=== PATIENT | male | born 1970 | race Caucasian/White ===

== ENCOUNTER 2017-09-28 23:48 | Emergency (ER) | payer OTHER ==
[~2017-09-28] VITALS: Ht 172.7 cm; Wt 105.2 kg
[~2017-09-28 23:48] MED LIST: ALBU90OI61 INH; AMIT10 PO; AMPDEX15CR PO; CLON.1 PO; CYCL10 PO; Coumadin5 MG PO; DIVA500ER PO; DOXE10 PO; DULO30 PO; ENOX120I SC; FLUSAL1005; FLUSAL2505 INH; GABA100 PO; GABA800 PO; Keflex500 MG PO; LEVE500 PO; LEVO750 PO; LISI5 PO; LOSA25 PO; METH40 PO; METPRE4DP PO; Norco 5-325 Ta1 EACH PO; PRAZ2 PO; Pepcid20 MG PO; Prednisone10 MG PO; SUBOXONE 2 MG-1 EACH SL; SULI150 PO; Ultram50 MG PO; Ventolin/Prove6.7 GM INH; WARF5 PO
[2017-09-29] MEDS ORDERED: WARF6 PO (00:24)
[2017-09-29] MEDS ORDERED: WARF3 PO (00:24)
[2017-09-29 01:36] LABS: International Normalized Ratio 3.21; Prothrombin Time Results 34.6 Sec (9.7-11.5)
[2017-09-29] MEDS ORDERED: Norco 5-325 Ta1 EACH PO (02:16)
== END 2017-09-29 02:25 | disposition home or self-care (01) ==
LOC: ER 23:48
PROVIDERS: Emergency Medicine
DX: I82.811 Embolism and thrombosis of superficial veins of right lower extremity (principal); J44.9 Chronic obstructive pulmonary disease, unspecified; D68.59 Other primary thrombophilia; Z79.899 Other long term (current) drug therapy; Z79.01 Long term (current) use of anticoagulants; Z86.718 Personal history of other venous thrombosis and embolism
CPT/HCPCS: 85610; 93971; 99284

== ENCOUNTER → 2018-09-12 | Outpatient (CLI) | payer OTHER ==
[~2018-09-12] MED LIST changes: +WARF3 PO; +WARF6 PO
== END | disposition home or self-care (01) ==
LOC: LAB EV 17:37 → LAB SHORT 17:37
DX: L03.114 Cellulitis of left upper limb (principal)
CPT/HCPCS: 87070; 87075; 87077; 87147; 87186; 87205

== ENCOUNTER 2018-09-14 13:34 | Emergency (ER) | payer OTHER ==
[~2018-09-14] VITALS: Ht 172.7 cm; Wt 79.4 kg
[2018-09-14 14:07] LABS: BASOPHILS ABSOLUTE AUTO 0.06 K/mm3 (0.00-0.23); BASOPHILS PERCENT AUTO 1 % (0-2); EOSINOPHILS ABSOLUTE AUTO 0.41 K/mm3 (0.00-0.68); EOSINOPHILS PERCENT AUTO 4 % (0-6); Hemoglobin 14.3 g/dL (13.5-17.5); IMMATURE GRAN ABSOLUTE AUTO 0.06 K/mm3 (0.00-0.10); IMMATURE GRAN PERCENT AUTO 1 % (0-1); LYMPHOCYTES ABSOLUTE AUTO 2.19 K/mm3 (0.84-5.20); LYMPHOCYTES PERCENT AUTO 18 % (21-46); MONOCYTES ABSOLUTE AUTO 0.78 K/mm3 (0.16-1.47); MONOCYTES PERCENT AUTO 7 % (4-13); Mean Corpuscular HGB 30.2 pg (26.0-34.0); Mean Corpuscular HGB Conc 32.5 g/dL (31.5-36.5); Mean Corpuscular Volume 93 fL (80-100); Mean Platelet Volume 10.1 fL (9.1-12.4); NEUTROPHILS ABSOLUTE AUTO 8.37 K/mm3 (1.96-9.15); NEUTROPHILS PERCENT AUTO 71 % (41-73); Platelet Count 343 K/mm3 (150-400); RDW Coefficient Variation 12.7 % (11.7-14.2); RDW Standard Deviation 43.6 fL (35.1-46.3); Red Blood Cell Count 4.74 M/mm3 (4.30-5.90); White Blood Cell Count 11.87 K/mm3 (4.00-11.30)
[2018-09-14 14:22] LABS: Alanine Aminotransfer (ALT/SGP 23 U/L (12-78); Albumin, Blood 3.5 g/dL (3.4-5.0); Albumin/Globulin Ratio 0.8 (0.8-1.8); Alk Phos 41 U/L (50-136); Anion Gap 6 mmol/L (6-16); Aspartate Aminotrans (AST/SGOT 25 U/L (12-37); Bilirubin, Total 0.2 mg/dL (0.1-1.0); Blood Urea Nitrogen 17 mg/dL (8-24); Bun/Creatinine Ratio 18.8 (12.0-20.0); CO2, Blood 24 mmol/L (21-32); Calcium, Blood 8.8 mg/dL (8.5-10.1); Chloride, Blood 107 mmol/L (98-108); Creatinine, Blood 0.91 mg/dL (0.60-1.20); Globulin, Blood 4.5 g/dL (2.2-4.0); Glomerular Filtration Rate >60 (60-); Glucose, Blood 97 mg/dL (70-99); Potassium, Blood 4.3 mmol/L (3.5-5.5); Sodium, Blood 137 mmol/L (136-145)
== END 2018-09-14 17:40 | disposition home or self-care (01) ==
LOC: ER 13:34
PROVIDERS: Physician Assistant
DX: Z48.817 Encounter for surgical aftercare following surgery on the skin and subcutaneous tissue (principal); J44.9 Chronic obstructive pulmonary disease, unspecified; G89.29 Other chronic pain; M54.9 Dorsalgia, unspecified; Z79.01 Long term (current) use of anticoagulants; Z79.899 Other long term (current) drug therapy; Z86.718 Personal history of other venous thrombosis and embolism
CPT/HCPCS: 36415; 76882; 80053; 85025; 99284-25

== ENCOUNTER 2019-08-29 06:02 | Inpatient (IN) | payer OTHER ==
[~2019-08-29] VITALS: Ht 172.7 cm; Wt 83.1 kg
[~2019-08-29 06:02] MED LIST changes: -DIVA500ER PO; -GABA800 PO; -WARF3 PO; -WARF6 PO
[2019-08-29 06:43] LABS: BASOPHILS ABSOLUTE AUTO 0.02 K/mm3 (0.00-0.23); BASOPHILS PERCENT AUTO 0 % (0-2); EOSINOPHILS ABSOLUTE AUTO 0.35 K/mm3 (0.00-0.68); EOSINOPHILS PERCENT AUTO 4 % (0-6); Hematocrit 30.7 % (37.0-53.0); Hemoglobin 10.1 g/dL (13.5-17.5); IMMATURE GRAN ABSOLUTE AUTO 0.06 K/mm3 (0.00-0.10); IMMATURE GRAN PERCENT AUTO 1 % (0-1); LYMPHOCYTES ABSOLUTE AUTO 1.59 K/mm3 (0.84-5.20); LYMPHOCYTES PERCENT AUTO 19 % (21-46); MONOCYTES ABSOLUTE AUTO 0.39 K/mm3 (0.16-1.47); MONOCYTES PERCENT AUTO 5 % (4-13); Mean Corpuscular HGB 29.4 pg (26.0-34.0); Mean Corpuscular HGB Conc 32.9 g/dL (31.5-36.5); Mean Corpuscular Volume 90 fL (80-100); Mean Platelet Volume 9.5 fL (9.1-12.4); NEUTROPHILS ABSOLUTE AUTO 6.19 K/mm3 (1.96-9.15); NEUTROPHILS PERCENT AUTO 72 % (41-73); Platelet Count 392 K/mm3 (150-400); RDW Coefficient Variation 14.9 % (11.7-14.2); RDW Standard Deviation 48.9 fL (35.1-46.3); Red Blood Cell Count 3.43 M/mm3 (4.30-5.90)
[2019-08-29 06:54] LABS: Alanine Aminotransfer (ALT/SGP 18 U/L (12-78); Albumin, Blood 2.6 g/dL (3.4-5.0); Albumin/Globulin Ratio 0.5 (0.8-1.8); Alk Phos 41 U/L (50-136); Anion Gap 5 mmol/L (6-16); Aspartate Aminotrans (AST/SGOT 25 U/L (12-37); Bilirubin, Total 0.5 mg/dL (0.1-1.0); Blood Urea Nitrogen 22 mg/dL (8-24); Bun/Creatinine Ratio 27.6 (12.0-20.0); CO2, Blood 26 mmol/L (21-32); Calcium, Blood 8.2 mg/dL (8.5-10.1); Chloride, Blood 105 mmol/L (98-108); Globulin, Blood 4.8 g/dL (2.2-4.0); Glomerular Filtration Rate >60 (60-); Glucose, Blood 120 mg/dL (70-99); Potassium, Blood 3.7 mmol/L (3.5-5.5); Sodium, Blood 136 mmol/L (136-145); Total Protein, Blood 7.4 g/dL (6.4-8.2)
[2019-08-29 07:10] LABS: Prothrombin Time Results 54.7 Sec (9.7-11.5)
[2019-08-29 07:20] LABS: International Normalized Ratio 5.64
[2019-08-29] MEDS ORDERED: DULO60 PO (13:16)
[2019-08-29] MEDS ORDERED: GABA800 PO (13:17)
[2019-08-29] MEDS ORDERED: FLUT1DIS5 INH (13:18)
[2019-08-29] MEDS ORDERED: DIVA500ER PO (13:19)
[2019-08-29] MEDS ORDERED: WARF7.5 PO (13:20)
[2019-08-29] MEDS ORDERED: POTA10T PO (13:21)
[2019-08-29] MEDS ORDERED: TROKENDI XR200 MG PO (13:21)
[2019-08-29] MEDS ORDERED: FURO20 PO (13:22)
[2019-08-29] MEDS ORDERED: Flexeril5 MG PO (13:22)
[2019-08-29] MEDS ORDERED: OXYC5 PO (13:23)
[2019-08-29] MEDS ORDERED: Flonase 0.05% N16 GM (13:24)
--- NOTE | 2019-08-29 17:28 | NUR ---
PT ARRIVED 1700 VIA CART AND WAS ABLE TO AMBULATE WITH STANDBY ASSIST TO RESTROOM. LEGS ARE VERY RED AND TENDER AT THIS TIME, WITH THE R LE HAVING MORE EDEMA. LEGS ARE HOT TO TOUCH. PT HAS BEEN SHOWN CALL LIGHT AND IS SITTING WATCHING TV AT THIS TIME WILL CONTINUE TO MONITOR.
--- NOTE | 2019-08-29 18:32 | NUR ---
THIS TRUST MANAGER TRIED TO CALL IN CONSULT TO ACCOUNT DIRECTOR, BUT THEIR ANSWERING MACHINE WAS FULL. NURSE NOTIFIY HAS BEEN ADDED FOR DAY SHIFT NURSE TO CALL IN THE MORNING.
--- NOTE | 2019-08-29 21:00 | NUR ---
PT BEGAN SHIFT VERY DROWSY, SOMNOLENT AND ONLY WAKEFUL FOR BRIEF FEW WORD RESPONSES THEN WOULD FALL BACK TO SLEEP. SINCE SHOWING S/S SEPSIS IN ER VITALS HAD IMPROVED BUT NOW TEMP HAD COME BACK UP TO 101.6 (ORAL), HR WAS TRENDING BACK UPWARD TO 100'S BPM, BP WAS TRENDING DOWN AGAIN NOW 100'S/50'S AND PT WAS TACHYPNEIC W/RR 20'S AND SPO2 WNL. ALERTED TO CHANGES AND TYLENOL RX'D FOR FEVER W/1L NS ORDERED AT 100 ML/HR. TYLENOL RECIEVED AND IV FLUIDS STARTED AT 2049. ALL OTHER HS MEDS WERE RECIEVED BECAUSE PT PERKED UP AND BECAME MORE ALERT DURING ASSESSMENT. HE ANSWERED Q'S APPROPRIATELY, REQUESTED FOOD/DRINKS AND WAS ABLE TO REPOSITION HIMSELF IN BED FOR PHOTO DOCUMETATION. PICS TAKEN OF LLE SWELLING/REDNESS R/T DVT AND RLE CELLULITIS W/SCABBED ULCERS. DIFFUSE RASH OBSERVED AND MARKED TO L.LEG AND EXTENDS UP FROM CALF TO MID LEG AND INTO INTERIOR OF THIGH. HE C/O SIGNIFICANT WORSENING IN FULL BODY PAIN OVER LAST 5 DAYS AND DESCRIBES PAIN "STABBING/ SH[place] AND ON EVERY SURFACE AND WITHIN EVERY JOINT OF HIS BODY". BLANKETS WERE REMOVED D/T FEVER AND TEMP MODIFIED IN ROOM. PLAN TO MONITOR PT CLOSELY AND REEVALUATE VITALS SIGNS APPROPRIATE.
--- NOTE | 2019-08-29 21:32 | NUR ---
SINCE RECIEVING TYLENOL TEMP IS TRENDING DOWNWARD, NOW 100.8 BUT BP IS NOW 98/60 DESPITE COMMENCING IVF. VEWS SCORE IS IMPROVING AND WANG HELM, SALES SUPPORT REP, IS AWARE OF SITUATION. WCTM CLOSELY FOR S/S WORSENIGN OR SEPSIS. PLAN TO REEVALUATE VITALS BUT PT'S MENTATION IS UNCHANGED AND REMAINS A/OX4.
--- NOTE | 2019-08-29 23:10 | NUR ---
VITALS CONTINUE TO IMPROVE AFTER TYLENOL AND COMMENCING IVF: BP 111/71, TEMP 98.8, HR 91, RR 22 AND SPO2 96%. VEWS SCORE NOW 2. PT CONT'S TO REPORT PAIN BUT IS A/OX4, SPECIFIES NEEDS, IS EATING SNACKS AND DOESN'T APPEAR IN ANY ACUTE DISTRESS. WCTM CLOSELY.
--- NOTE | 2019-08-30 02:14 | NUR ---
MESSAGE LEFT FOR INFECTION CONTROL RE:ISOLATION CLARIFICATION. PT GREW MSSA AND GAS DURING RECENT [facility] HOSPITALISATION PER THEIR INFECTION CONTROL. [facility] PROTOCOL RECOMMENDS CONTACT/DROPLET ISO D/T WEAPING BLE AND LEG ULCERS TO RLE HOWEVER I AM UNSURE IF SPECIMENS WERE OBTAINED FROM LEG SORES AT THAT TIME. ISTRUCTIONS PENDING BUT ISOLATION HAS BEEN IN PLACE SINCE ADMIT.
--- NOTE | 2019-08-30 04:52 | NUR ---
SUMMARY: PT A/OX4, SPECIFIES NEEDS AND IS COOPERATIVE W/CARE. HE USES URINAL INDEPENDENTLY BUT HAS OCCASIONAL ACCIDENTS REQUIRING LINEN CHANGES. WHILE PT'S MENTATION IS VASTLY IMPROVED, HE WAS FORGETFUL/CONFUSED WHEN FEBRILE AT START OF SHIFT SO BED ALARM REMAINS ON FOR POSSIBLE IMPULSIVITY. HE WAS INITIALLY HYPOTENSIVE, TACHYCARDIC, TACHYPNEIC AND FEBRILE BUT AFTER NEW ORDERS TO INFUSE 1L NS AT 100 MLS/HR AND GIVE TYLENOL PRN, PT'S MENTATION AND VITALS ARE AGAIN WNL. BLE EDEMA OBSERVED, RLE>LLE. BOTH ARE RED, SWOLLEN, HOT AND DRY. RLE HAS CELLULITIS W/WEAPING AND SCABBED ULCERS. LLE HAS CHRONIC DVT W/DIFFUSE PURPURA AND PETECHIAE EXTENDING FROM LLE UP TO INNER THIGH. PHOTOS TAKEN AND AREA MARKED. COUMADIN ON HOLD D/T INR ELEVATION. ER MD REFERRED TO SX CX THOUGH NO ORDER IS PRESENT, WILL F/U W/HOSPITALIST. NANCY RN ATTEMPTED TO CALL DERM CX, SEE NOTE FOR DETAILS. PAIN HAS IMPROVED GREATLY T/O NOCTE. HE BEGAN HYPERSENSITIVE REPORTING JOINT AND SKIN PAIN TO ENTIRE BODY BUT OXYCODONE PRN RECIEVED AND PT STATES PAIN IS AGAIN TYPICAL TO LEGS/FEET, BACK AND SHOULDERS ONLY. NO ACUTE CHANGES, VSS/AFEBRILE. HE REMAINS NSR AT 90'S PER TELEMETRY. WCTM AND REPORT TO NANCY RN. DERMATOLOGY CX UNABLE TO BE CALLED
[2019-08-30 04:54] LABS: BASOPHILS ABSOLUTE AUTO 0.02 K/mm3 (0.00-0.23); BASOPHILS PERCENT AUTO 0 % (0-2); EOSINOPHILS ABSOLUTE AUTO 0.49 K/mm3 (0.00-0.68); EOSINOPHILS PERCENT AUTO 6 % (0-6); Hematocrit 28.5 % (37.0-53.0); IMMATURE GRAN ABSOLUTE AUTO 0.16 K/mm3 (0.00-0.10); IMMATURE GRAN PERCENT AUTO 2 % (0-1); LYMPHOCYTES ABSOLUTE AUTO 1.74 K/mm3 (0.84-5.20); LYMPHOCYTES PERCENT AUTO 22 % (21-46); MONOCYTES ABSOLUTE AUTO 0.41 K/mm3 (0.16-1.47); MONOCYTES PERCENT AUTO 5 % (4-13); Mean Corpuscular HGB 28.8 pg (26.0-34.0); Mean Corpuscular HGB Conc 31.6 g/dL (31.5-36.5); Mean Corpuscular Volume 91 fL (80-100); Mean Platelet Volume 9.6 fL (9.1-12.4); NEUTROPHILS ABSOLUTE AUTO 5.13 K/mm3 (1.96-9.15); NEUTROPHILS PERCENT AUTO 64 % (41-73); Platelet Count 327 K/mm3 (150-400); RDW Coefficient Variation 15.1 % (11.7-14.2); RDW Standard Deviation 50.4 fL (35.1-46.3); Red Blood Cell Count 3.12 M/mm3 (4.30-5.90); White Blood Cell Count 7.95 K/mm3 (4.00-11.30)
[2019-08-30 05:10] LABS: Alanine Aminotransfer (ALT/SGP 17 U/L (12-78); Albumin, Blood 2.2 g/dL (3.4-5.0); Albumin/Globulin Ratio 0.5 (0.8-1.8); Alk Phos 33 U/L (50-136); Anion Gap 3 mmol/L (6-16); Aspartate Aminotrans (AST/SGOT 22 U/L (12-37); Bilirubin, Total 0.5 mg/dL (0.1-1.0); Blood Urea Nitrogen 13 mg/dL (8-24); Bun/Creatinine Ratio 14.5 (12.0-20.0); CO2, Blood 27 mmol/L (21-32); Calcium, Blood 7.9 mg/dL (8.5-10.1); Chloride, Blood 104 mmol/L (98-108); Creatinine, Blood 0.89 mg/dL (0.60-1.20); Globulin, Blood 4.4 g/dL (2.2-4.0); Glomerular Filtration Rate >60 (60-); Glucose, Blood 95 mg/dL (70-99); Sodium, Blood 134 mmol/L (136-145); Total Protein, Blood 6.6 g/dL (6.4-8.2)
[2019-08-30 05:35] LABS: Prothrombin Time Results 65.7 Sec (9.7-11.5)
--- NOTE | 2019-08-30 06:21 | NUR ---
CALLED ALERTED THE ER NOTE INDICATES SURGICAL CX WOULD OCCUR BUT NO ORDER PRESENT. ORDER RECIEVED AND CX CALLED TO AN[facility] SERVICE ON 08/30/19 AT 0620.
[2019-08-30 06:22] LABS: International Normalized Ratio 6.85
--- NOTE | 2019-08-30 06:29 | NUR ---
CRITICAL INR NOW 6.85 (WAS 5.64). ALERTED AND NEW ORDER RECIEVED TO CONTINUE HOLDING COUMADIN AND RECHECK PRO TIME IN AM.
[2019-08-30 14:21] LABS: U Amphetamine Screen Not Detected; U Barbituate Screen Not Detected; U Benzodiazapine Screen Not Detected; U Buprenorphine Screen Not Detected; U Cannabinoids Screen Not Detected; U Cocaine Screen Not Detected; U Methadone Screen Not Detected; U Methamphetamine Screen Not Detected; U Opiates Screen DETECTED; U Oxycodone Screen DETECTED; U Phencyclidine Screen Not Detected; U Propoxyphene Screen Not Detected
--- NOTE | 2019-08-30 17:18 | NUR ---
SUMMARY PT RESTING QUIETLY IN BED, WAKES EASILY, SPOUSE AT THE BEDSIDE, PT UP TO THE SHOWER TODAY WITH MIN ASSIST, PT USES THE WALKER, PT MED PER EMAR FOR PAIN, NO ACUTE CHANGES, WILL CONT TO MONITOR
[2019-08-31 05:01] LABS: BASOPHILS ABSOLUTE AUTO 0.03 K/mm3 (0.00-0.23); BASOPHILS PERCENT AUTO 0 % (0-2); EOSINOPHILS ABSOLUTE AUTO 0.77 K/mm3 (0.00-0.68); EOSINOPHILS PERCENT AUTO 8 % (0-6); Hematocrit 27.7 % (37.0-53.0); Hemoglobin 8.6 g/dL (13.5-17.5); IMMATURE GRAN ABSOLUTE AUTO 0.21 K/mm3 (0.00-0.10); IMMATURE GRAN PERCENT AUTO 2 % (0-1); LYMPHOCYTES ABSOLUTE AUTO 1.89 K/mm3 (0.84-5.20); LYMPHOCYTES PERCENT AUTO 20 % (21-46); MONOCYTES ABSOLUTE AUTO 0.62 K/mm3 (0.16-1.47); MONOCYTES PERCENT AUTO 7 % (4-13); Mean Corpuscular HGB 28.4 pg (26.0-34.0); Mean Corpuscular Volume 91 fL (80-100); Mean Platelet Volume 9.7 fL (9.1-12.4); NEUTROPHILS ABSOLUTE AUTO 5.85 K/mm3 (1.96-9.15); NEUTROPHILS PERCENT AUTO 63 % (41-73); Platelet Count 333 K/mm3 (150-400); RDW Standard Deviation 50.4 fL (35.1-46.3); Red Blood Cell Count 3.03 M/mm3 (4.30-5.90); White Blood Cell Count 9.37 K/mm3 (4.00-11.30)
--- NOTE | 2019-08-31 05:21 | NUR ---
SHIFT SUMMARY PT SLEPT OFF AND ON THROUGHOUT THE NIGHT. DROWSY AFTER PAIN MEDICATION. PT REPORTED PAIN TO BACK AND BLE'S, RIGHT LEG BEING THE MOST PAINFUL. BLE'S WITH REDNESS AND SWELLING. ULCERS TO RLE OPEN TO AIR. PICTURES IN CHART. NO IMPROVEMENT NOTICED TO REDNESS OR SWELLING TO BLE'S THIS EVENING BUT DOES NOT APPEAR TO BE ANY WORSE EITHER. OUTLINE OF REDNESS MARKED. TELEMETRY ON, READING SR IN THE 90'S. SIGNIFICANT OTHER REMAINED AT BEDSIDE THROUGHOUT THE NIGHT. RECLINER CHAIR PROVIDED. NO ACUTE CHANGES THIS SHIFT. VITAL SIGNS STABLE. WILL CONTINUE TO MONITOR.
[2019-08-31 05:34] LABS: Anion Gap 5 mmol/L (6-16); Blood Urea Nitrogen 14 mg/dL (8-24); Bun/Creatinine Ratio 16.1 (12.0-20.0); CO2, Blood 27 mmol/L (21-32); Calcium, Blood 8.4 mg/dL (8.5-10.1); Chloride, Blood 102 mmol/L (98-108); Creatinine, Blood 0.87 mg/dL (0.60-1.20); Glomerular Filtration Rate >60 (60-); Glucose, Blood 104 mg/dL (70-99); Sodium, Blood 134 mmol/L (136-145)
--- NOTE | 2019-08-31 17:21 | NUR ---
SUMMARY PT RESTING QUIETLY IN BED, WAKES WHEN SPOKEN LOUDLY TO, PT MED PER EMAR FOR PAIN, PT INDEPENDENT IN THE ROOM, WILL OCC USE THE WALKER, PT USES THE URINAL AT THE BEDSIDE, IS OCC INCONTINENT WHEN DEEPLY ASLEEP, COOPERATIVE WITH CARE, WILL CONT TO MONITOR
[2019-09-01 05:10] LABS: BASOPHILS ABSOLUTE AUTO 0.04 K/mm3 (0.00-0.23); BASOPHILS PERCENT AUTO 0 % (0-2); EOSINOPHILS ABSOLUTE AUTO 0.97 K/mm3 (0.00-0.68); EOSINOPHILS PERCENT AUTO 9 % (0-6); Hematocrit 29.1 % (37.0-53.0); Hemoglobin 9.2 g/dL (13.5-17.5); IMMATURE GRAN ABSOLUTE AUTO 0.41 K/mm3 (0.00-0.10); IMMATURE GRAN PERCENT AUTO 4 % (0-1); LYMPHOCYTES ABSOLUTE AUTO 1.63 K/mm3 (0.84-5.20); LYMPHOCYTES PERCENT AUTO 16 % (21-46); MONOCYTES ABSOLUTE AUTO 0.59 K/mm3 (0.16-1.47); MONOCYTES PERCENT AUTO 6 % (4-13); Mean Corpuscular HGB 29.1 pg (26.0-34.0); Mean Corpuscular HGB Conc 31.6 g/dL (31.5-36.5); Mean Corpuscular Volume 92 fL (80-100); Mean Platelet Volume 9.7 fL (9.1-12.4); NEUTROPHILS ABSOLUTE AUTO 6.89 K/mm3 (1.96-9.15); NEUTROPHILS PERCENT AUTO 65 % (41-73); Platelet Count 382 K/mm3 (150-400); RDW Coefficient Variation 15.3 % (11.7-14.2); RDW Standard Deviation 51.8 fL (35.1-46.3); Red Blood Cell Count 3.16 M/mm3 (4.30-5.90); White Blood Cell Count 10.53 K/mm3 (4.00-11.30)
[2019-09-01 05:17] LABS: International Normalized Ratio 3.58; Prothrombin Time Results 35.6 Sec (9.7-11.5)
[2019-09-01 05:22] LABS: Anion Gap 8 mmol/L (6-16); Blood Urea Nitrogen 12 mg/dL (8-24); Bun/Creatinine Ratio 15.6 (12.0-20.0); CO2, Blood 23 mmol/L (21-32); Calcium, Blood 8.4 mg/dL (8.5-10.1); Chloride, Blood 105 mmol/L (98-108); Creatinine, Blood 0.77 mg/dL (0.60-1.20); Glomerular Filtration Rate >60 (60-); Glucose, Blood 114 mg/dL (70-99); Potassium, Blood 4.2 mmol/L (3.5-5.5); Sodium, Blood 136 mmol/L (136-145)
--- NOTE | 2019-09-01 06:08 | NUR ---
SHIFT SUMMARY PT VERY SLEEPY THIS EVENING. WAKES WHEN CALLING HIS NAME BUT OVERALL LETHARGIC THROUGHOUT THE NIGHT. PT DID REPORT PAIN IN BLE'S, MORE SEVERE IN RLE BUT WOULD GO RIGHT BACK TO SLEEP. DID NOT GIVE ANY NARCOTIC PAIN MEDICATION THIS EVENING DUE TO LETHARGY. BLE'S DID APPEAR SLIGHTLY IMPROVED THIS EVENING. RLE STILL VERY SWOLLEN BUT REDNESS TO BOTH LE'S IMPROVED. PT AMBULATING TO THE RESTROOM WITH A SBA, HOWEVER IS INCONTINENT AT TIMES. MOSTLY USES THE URINAL WHILE IN BED. TELEMETRY SINUS RHYTHM IN THE 90'S. PT AFEBRILE THIS EVENING. PT SLEEPING AT THIS TIME. WILL CONTINUE TO MONITOR.
--- NOTE | 2019-09-01 17:19 | NUR ---
SHIFT SUMMARY PT MEDICATED FOR PAIN ONCE THIS SHIFT. PT VERY SLEEPY AFTERWARDS BUT EASY TO AROUSE. PT REFUSED TO GET OUT OF BED THIS SHIFT. CONT/INCONT THROUGHOUT SHIFT. PT STATES HE IS "MISSING THE URINAL". NO BM THIS SHIFT. AT BEDSIDE. PT HAS NEW IV PLACED TO LFA. FLUSHING WELL. PT ENCOURAGED TO DRINK MORE WATER. TEMP OF 100.0. BLANKET REMOVED TO COOL PATIENT. TYLENOL GIVEN. RA TO BUTTOCKS, FOAM PLACED FOR PREVENTION. NO OTHER ACUTE CHANGES IN ASSESSMENT AT THIS TIME.
--- NOTE | 2019-09-01 21:21 | NUR ---
PT FAMILY CONCERNED THAT PT MAY HAVE HAD A SEIZURE/STROKE DUE TO PATIENTS CURRENT CONFUSION. PT FAMILY STATED THAT PT HAS HAD SEIZURES IN THE PAST DUE TO CONCUSSIONS. NURSE NOTIFIED.
[2019-09-02 05:24] LABS: International Normalized Ratio 1.7; Prothrombin Time Results 17.7 Sec (9.7-11.5)
--- NOTE | 2019-09-02 06:27 | NUR ---
SHIFT SUMMARY PATIENT LETHARGIC AND SLEEPY BUT FAIRLY EASY TO AROUSE FOR MEDICATIONS AND ADL'S. HE WAS SLIGHTLY CONFUSED OVERNIGHT. IV PATENT AND FLUSHED. BED IN LOWEST POSITION WITH WHEELS LOCKED. CALL LIGHT WITHIN REACH. REPORT GIVEN TO ONCOMING RN.
--- NOTE | 2019-09-02 16:46 | NUR ---
SHIFT SUMMARY PT ASLEEP IN BED MOST THE DAY. PT REFUSED SHOWER THIS SHIFT. PT WORKED WITH PHYSICAL THERAPY AND OT THIS SHIFT. MOVING WELL WHEN AWAKE. DR. CASIANO MADE MED CHANGES TO ASSIST WITH SEDATION. NO PAIN MEDS REQUIRED THIS SHIFT. PT CONT/INCONT THROUGHOUT SHIFT. AT BEDSIDE THROUGHOUT SHIFT. PT SISTER, EVGENY UPDATED PER PT PERMISSION. NO OTHER CHANGES IN ASSESSMENT AT THIS TIME.
--- NOTE | 2019-09-03 03:53 | NUR ---
FOOD SCIENCE TECHNICIAN SUMMARY PT WAS DROWSY FOR THE DURATION OF MY SHIFT. EASILY AROUSABLE TO VERBAL STIMULI. A/O X2 TO SELF AND DATE. HE THOUGHT HE WAS IN [place] AND CANNOT RECALL PRESIDENT. SIGNIFICANT OTHER HAS STAYED WITH PT ALL NIGHT. NO COMPLAINTS OF PAIN, NAUSEA, SOB. VSS. NO ACUTE CHANGES. CALL LIGHT WITHIN REACH.
[2019-09-03 04:57] LABS: BASOPHILS ABSOLUTE AUTO 0.09 K/mm3 (0.00-0.23); BASOPHILS PERCENT AUTO 1 % (0-2); EOSINOPHILS ABSOLUTE AUTO 1.34 K/mm3 (0.00-0.68); EOSINOPHILS PERCENT AUTO 9 % (0-6); Hematocrit 32.5 % (37.0-53.0); Hemoglobin 10.6 g/dL (13.5-17.5); IMMATURE GRAN ABSOLUTE AUTO 0.73 K/mm3 (0.00-0.10); IMMATURE GRAN PERCENT AUTO 5 % (0-1); LYMPHOCYTES ABSOLUTE AUTO 1.99 K/mm3 (0.84-5.20); LYMPHOCYTES PERCENT AUTO 14 % (21-46); MONOCYTES ABSOLUTE AUTO 1.19 K/mm3 (0.16-1.47); MONOCYTES PERCENT AUTO 8 % (4-13); Mean Corpuscular HGB 28.6 pg (26.0-34.0); Mean Corpuscular HGB Conc 32.6 g/dL (31.5-36.5); Mean Corpuscular Volume 88 fL (80-100); Mean Platelet Volume 9.2 fL (9.1-12.4); NEUTROPHILS ABSOLUTE AUTO 9.13 K/mm3 (1.96-9.15); NEUTROPHILS PERCENT AUTO 63 % (41-73); Platelet Count 455 K/mm3 (150-400); RDW Coefficient Variation 15.6 % (11.7-14.2); RDW Standard Deviation 50.2 fL (35.1-46.3); Red Blood Cell Count 3.71 M/mm3 (4.30-5.90); White Blood Cell Count 14.47 K/mm3 (4.00-11.30)
[2019-09-03 05:11] LABS: International Normalized Ratio 1.37; Prothrombin Time Results 14.4 Sec (9.7-11.5)
[2019-09-03 05:13] LABS: Anion Gap 6 mmol/L (6-16); Blood Urea Nitrogen 21 mg/dL (8-24); Bun/Creatinine Ratio 26.5 (12.0-20.0); CO2, Blood 22 mmol/L (21-32); Calcium, Blood 8.8 mg/dL (8.5-10.1); Chloride, Blood 106 mmol/L (98-108); Creatinine, Blood 0.79 mg/dL (0.60-1.20); Glomerular Filtration Rate >60 (60-); Glucose, Blood 99 mg/dL (70-99); Potassium, Blood 4.2 mmol/L (3.5-5.5); Sodium, Blood 134 mmol/L (136-145)
[2019-09-03] MEDS ORDERED: GABA400 PO (11:27)
[2019-09-03] MEDS ORDERED: TRAM50 PO (11:28)
[2019-09-03] MEDS ORDERED: CLIN300 PO (11:32)
--- NOTE | 2019-09-03 12:14 | NUR ---
Discharge instructions reviewed with patient. Patient AND verbalize understanding. Copy given to patient to take home. COORDINATED HOME HEALTH, OT/PT SET UP. PERIPHERAL IV IN LEFT ARM DISCONTINUED. PATIENT TRANSPORTED VIA AMBULATORY TRANSPORT, JUAN AT BEDSIDE. REVIEWED FOLLOW UP APPOINTMENT WITH PCP, AND FOLLOW UP WITH MEDICATION REFILLS. GAVE PHYSICAL RX FOR TRAMADOL AND WALKER RX TO PATIENT. ALL PERSONAL BELONGINGS RECONCILED AND ACCOUNTED FOR BY PATIENT.
== END 2019-09-03 12:11 | disposition home or self-care (01) | DRG 603 ==
LOC: ER 06:02 → MEDS 15:03 → ENPENDDIS 09-03 10:46 → MEDS 09-03 12:11
PROVIDERS: Emergency Medicine; Hospitalist; Nurse Practitioner Acute Care; Pharmacist; ADMIT Internal Medicine
DX: L03.115 Cellulitis of right lower limb (principal); D68.59 Other primary thrombophilia; L03.116 Cellulitis of left lower limb; J44.9 Chronic obstructive pulmonary disease, unspecified; D64.9 Anemia, unspecified; F43.10 Post-traumatic stress disorder, unspecified; F90.9 Attention-deficit hyperactivity disorder, unspecified type; I10 Essential (primary) hypertension; G89.29 Other chronic pain; Z86.718 Personal history of other venous thrombosis and embolism; Z79.01 Long term (current) use of anticoagulants
CPT/HCPCS: 36415; 73701; 80048; 80053; 83605; 84145; 85025; 85610; 85651; 85730; 86140; 87040; 93971; 94640; 94760; 96361; 96365-59; 96375-59; 96376; 97116; 97161; 97165; 97535; 99285-25; A9270; J2270; J2405; J7030; J7050; Q9967

== ENCOUNTER → 2019-09-11 | Outpatient (CLI) | payer OTHER ==
[~2019-09-11] MED LIST changes: +CLIN300 PO; +DIVA500ER PO; +DULO60 PO; +FLUT1DIS5 INH; +FURO20 PO; +Flexeril5 MG PO; +Flonase 0.05% N16 GM; +GABA400 PO; +GABA800 PO; +OXYC5 PO; +POTA10T PO; +TRAM50 PO; +TROKENDI XR200 MG PO; +WARF7.5 PO
[2019-09-11 15:52] LABS: BASOPHILS ABSOLUTE AUTO 0.17 K/mm3 (0.00-0.23); BASOPHILS PERCENT AUTO 1 % (0-2); Hematocrit 29.9 % (37.0-53.0); Hemoglobin 9.4 g/dL (13.5-17.5); LYMPHOCYTES PERCENT AUTO 7 % (21-46); MONOCYTES ABSOLUTE AUTO 1.62 K/mm3 (0.16-1.47); MONOCYTES PERCENT AUTO 6 % (4-13); Mean Corpuscular HGB 28.1 pg (26.0-34.0); Mean Corpuscular HGB Conc 31.4 g/dL (31.5-36.5); Mean Corpuscular Volume 90 fL (80-100); Mean Platelet Volume 10.8 fL (9.1-12.4); Platelet Count 407 K/mm3 (150-400); RDW Coefficient Variation 15.1 % (11.7-14.2); RDW Standard Deviation 49.4 fL (35.1-46.3); Red Blood Cell Count 3.34 M/mm3 (4.30-5.90); White Blood Cell Count 29.03 K/mm3 (4.00-11.30)
[2019-09-11 15:53] LABS: EOSINOPHILS ABSOLUTE AUTO 1.98 K/mm3 (0.00-0.68); EOSINOPHILS PERCENT AUTO 7 % (0-6); IMMATURE GRAN ABSOLUTE AUTO 1.01 K/mm3 (0.00-0.10); IMMATURE GRAN PERCENT AUTO 4 % (0-1); NEUTROPHILS ABSOLUTE AUTO 22.35 K/mm3 (1.96-9.15); NEUTROPHILS PERCENT AUTO 77 % (41-73)
[2019-09-11 16:08] LABS: Prothrombin Time Results 82.4 Sec (9.7-11.5)
[2019-09-11 16:41] LABS: International Normalized Ratio 8.7
== END ==
LOC: LAB HH 12:46
PROVIDERS: Physician Assistant
DX: Z79.01 Long term (current) use of anticoagulants (principal); Z51.81 Encounter for therapeutic drug level monitoring
CPT/HCPCS: 85025; 85610

== ENCOUNTER 2019-09-12 09:29 | Inpatient (IN) | payer OTHER ==
[~2019-09-12] VITALS: Ht 172.7 cm; Wt 84.1 kg
[2019-09-12 10:12] LABS: BASOPHILS ABSOLUTE AUTO 0.16 K/mm3 (0.00-0.23); BASOPHILS PERCENT AUTO 1 % (0-2); EOSINOPHILS ABSOLUTE AUTO 1.95 K/mm3 (0.00-0.68); EOSINOPHILS PERCENT AUTO 7 % (0-6); Hematocrit 32.9 % (37.0-53.0); Hemoglobin 10.6 g/dL (13.5-17.5); IMMATURE GRAN PERCENT AUTO 5 % (0-1); LYMPHOCYTES ABSOLUTE AUTO 2.05 K/mm3 (0.84-5.20); LYMPHOCYTES PERCENT AUTO 8 % (21-46); MONOCYTES ABSOLUTE AUTO 1.33 K/mm3 (0.16-1.47); MONOCYTES PERCENT AUTO 5 % (4-13); Mean Corpuscular HGB 28.5 pg (26.0-34.0); Mean Corpuscular HGB Conc 32.2 g/dL (31.5-36.5); Mean Corpuscular Volume 88 fL (80-100); Mean Platelet Volume 9.4 fL (9.1-12.4); NEUTROPHILS ABSOLUTE AUTO 19.82 K/mm3 (1.96-9.15); NEUTROPHILS PERCENT AUTO 75 % (41-73); Platelet Count 602 K/mm3 (150-400); RDW Coefficient Variation 15.1 % (11.7-14.2); RDW Standard Deviation 49.6 fL (35.1-46.3); Red Blood Cell Count 3.72 M/mm3 (4.30-5.90); White Blood Cell Count 26.51 K/mm3 (4.00-11.30)
[2019-09-12 10:27] LABS: Alanine Aminotransfer (ALT/SGP 13 U/L (12-78); Albumin, Blood 1.9 g/dL (3.4-5.0); Albumin/Globulin Ratio 0.4 (0.8-1.8); Alk Phos 73 U/L (50-136); Anion Gap 7 mmol/L (6-16); Aspartate Aminotrans (AST/SGOT 16 U/L (12-37); Bilirubin, Total 0.3 mg/dL (0.1-1.0); Blood Urea Nitrogen 10 mg/dL (8-24); Bun/Creatinine Ratio 14.2 (12.0-20.0); CO2, Blood 23 mmol/L (21-32); Calcium, Blood 8.4 mg/dL (8.5-10.1); Chloride, Blood 105 mmol/L (98-108); Creatinine, Blood 0.71 mg/dL (0.60-1.20); Globulin, Blood 5.4 g/dL (2.2-4.0); Glomerular Filtration Rate >60 (60-); Glucose, Blood 91 mg/dL (70-99); Sodium, Blood 135 mmol/L (136-145); Total Protein, Blood 7.3 g/dL (6.4-8.2); Troponin I <0.015 ng/mL (0.000-0.040)
[2019-09-12 10:30] LABS: Prothrombin Time Results 55.2 Sec (9.7-11.5)
[2019-09-12 10:32] LABS: International Normalized Ratio 5.69
[2019-09-12 11:33] LABS: Source, Urine Clean Catch
[2019-09-12 11:42] LABS: Appearance, Urine Clear (Clear); Bilirubin, Urine Neg (Neg); Blood, Urine 5+ (Neg); Color, Urine Yellow (P-Yellow); Glucose Qualitative, Urine Neg (Neg); Ketones, Urine 1+ (Neg); Leukocyte Esterase, Urine Neg (Neg); Nitrite, Urine Neg (Neg); Protein, Urine 2+ (Neg); Urobilinogen, Urine 2+ (Normal)
[2019-09-12 12:03] LABS: Bacteria Not Seen /hpf; Red Blood Cells, Urine 25-50 /hpf (0-2); Squamous Epithelial Cells Not Seen /hpf (Few); White Blood Cells, Urine 0-2 /hpf (0-5)
[2019-09-12 12:43] LABS: Prostate Specific Antigen 0.083 ng/mL (0.000-4.000)
[2019-09-13 04:58] LABS: Hematocrit 28.6 % (37.0-53.0); Hemoglobin 9.1 g/dL (13.5-17.5); Mean Corpuscular HGB Conc 31.8 g/dL (31.5-36.5); Mean Corpuscular Volume 88 fL (80-100); Mean Platelet Volume 9.4 fL (9.1-12.4); Platelet Count 528 K/mm3 (150-400); RDW Coefficient Variation 15.2 % (11.7-14.2); RDW Standard Deviation 49.1 fL (35.1-46.3); Red Blood Cell Count 3.25 M/mm3 (4.30-5.90); White Blood Cell Count 25.74 K/mm3 (4.00-11.30)
[2019-09-13 05:11] LABS: Alanine Aminotransfer (ALT/SGP 11 U/L (12-78); Albumin, Blood 1.7 g/dL (3.4-5.0); Albumin/Globulin Ratio 0.4 (0.8-1.8); Alk Phos 68 U/L (50-136); Anion Gap 8 mmol/L (6-16); Aspartate Aminotrans (AST/SGOT 12 U/L (12-37); Bilirubin, Total 0.2 mg/dL (0.1-1.0); Blood Urea Nitrogen 11 mg/dL (8-24); Bun/Creatinine Ratio 16.6 (12.0-20.0); CO2, Blood 22 mmol/L (21-32); Calcium, Blood 8.1 mg/dL (8.5-10.1); Chloride, Blood 104 mmol/L (98-108); Creatinine, Blood 0.66 mg/dL (0.60-1.20); Globulin, Blood 4.8 g/dL (2.2-4.0); Glomerular Filtration Rate >60 (60-); Glucose, Blood 99 mg/dL (70-99); Magnesium, Blood 1.8 mg/dL (1.6-2.4); Potassium, Blood 4.1 mmol/L (3.5-5.5); Sodium, Blood 134 mmol/L (136-145); Total Protein, Blood 6.5 g/dL (6.4-8.2)
[2019-09-13 05:20] LABS: Prothrombin Time Results 52.3 Sec (9.7-11.5)
[2019-09-13 05:22] LABS: BAND PERCENT MAN 1 % (0-8); BASOPHILS ABSOLUTE MAN 0.51 K/mm3 (0.00-0.23); BASOPHILS PERCENT MAN 2 % (0-2); EOSINOPHILS ABSOLUTE MAN 2.05 K/mm3 (0.00-0.68); EOSINOPHILS PERCENT MAN 8 % (0-6); LYMPHOCYTES ABSOLUTE MAN 2.31 K/mm3 (0.84-5.20); LYMPHOCYTES PERCENT MAN 9 % (21-46); MONOCYTES ABSOLUTE MAN 2.05 K/mm3 (0.16-1.47); MONOCYTES PERCENT MAN 8 % (4-13); MYELOCYTE ABSOLUTE MAN 0.25 K/mm3 (0.00-0.00); MYELOCYTE PERCENT MAN 1 % (0-0); NEUTROPHILS ABSOLUTE MAN 18.53 K/mm3 (1.96-9.15); SEG NEUTROPHILS PERCENT MAN 71 % (41-73); TOTAL CELLS COUNTED 100
[2019-09-13 05:28] LABS: International Normalized Ratio 5.38
[2019-09-14 02:52] LABS: Hematocrit 29.7 % (37.0-53.0); Hemoglobin 9.7 g/dL (13.5-17.5); Mean Corpuscular HGB 28.5 pg (26.0-34.0); Mean Corpuscular HGB Conc 32.7 g/dL (31.5-36.5); Mean Corpuscular Volume 87 fL (80-100); Platelet Count 530 K/mm3 (150-400); RDW Coefficient Variation 15.2 % (11.7-14.2); RDW Standard Deviation 48.8 fL (35.1-46.3); White Blood Cell Count 23.99 K/mm3 (4.00-11.30)
[2019-09-14 03:08] LABS: Vancomycin, Trough 8.1 ug/mL (5.0-10.0)
[2019-09-14 03:09] LABS: International Normalized Ratio 3.68; Prothrombin Time Results 36.6 Sec (9.7-11.5)
[2019-09-14 03:14] LABS: BASOPHILS PERCENT MAN 0 % (0-2); EOSINOPHILS ABSOLUTE MAN 2.63 K/mm3 (0.00-0.68); EOSINOPHILS PERCENT MAN 11 % (0-6); LYMPHOCYTES ABSOLUTE MAN 2.63 K/mm3 (0.84-5.20); LYMPHOCYTES PERCENT MAN 11 % (21-46); METAMYELOCYTE ABSOLUTE MAN 0.23 K/mm3 (0.00-0.00); METAMYELOCYTE PERCENT MAN 1 % (0-0); MONOCYTES ABSOLUTE MAN 1.91 K/mm3 (0.16-1.47); MONOCYTES PERCENT MAN 8 % (4-13); MYELOCYTE ABSOLUTE MAN 0.71 K/mm3 (0.00-0.00); MYELOCYTE PERCENT MAN 3 % (0-0); NEUTROPHILS ABSOLUTE MAN 15.83 K/mm3 (1.96-9.15); SEG NEUTROPHILS PERCENT MAN 66 % (41-73); TOTAL CELLS COUNTED 100
[2019-09-15 03:13] LABS: BASOPHILS ABSOLUTE AUTO 0.13 K/mm3 (0.00-0.23); BASOPHILS PERCENT AUTO 1 % (0-2); EOSINOPHILS ABSOLUTE AUTO 2.28 K/mm3 (0.00-0.68); EOSINOPHILS PERCENT AUTO 11 % (0-6); Hematocrit 28.4 % (37.0-53.0); IMMATURE GRAN ABSOLUTE AUTO 1.31 K/mm3 (0.00-0.10); IMMATURE GRAN PERCENT AUTO 6 % (0-1); LYMPHOCYTES ABSOLUTE AUTO 2.17 K/mm3 (0.84-5.20); LYMPHOCYTES PERCENT AUTO 10 % (21-46); MONOCYTES ABSOLUTE AUTO 1.06 K/mm3 (0.16-1.47); MONOCYTES PERCENT AUTO 5 % (4-13); Mean Corpuscular HGB Conc 31.7 g/dL (31.5-36.5); Mean Corpuscular Volume 88 fL (80-100); Mean Platelet Volume 8.9 fL (9.1-12.4); NEUTROPHILS ABSOLUTE AUTO 13.97 K/mm3 (1.96-9.15); NEUTROPHILS PERCENT AUTO 67 % (41-73); Platelet Count 548 K/mm3 (150-400); RDW Coefficient Variation 15.2 % (11.7-14.2); RDW Standard Deviation 49.1 fL (35.1-46.3); Red Blood Cell Count 3.22 M/mm3 (4.30-5.90); White Blood Cell Count 20.92 K/mm3 (4.00-11.30)
[2019-09-15 03:29] LABS: BAND PERCENT MAN 2 % (0-8); BASOPHILS PERCENT MAN 0 % (0-2); EOSINOPHILS ABSOLUTE MAN 1.46 K/mm3 (0.00-0.68); EOSINOPHILS PERCENT MAN 7 % (0-6); LYMPHOCYTES ABSOLUTE MAN 1.25 K/mm3 (0.84-5.20); LYMPHOCYTES PERCENT MAN 6 % (21-46); METAMYELOCYTE ABSOLUTE MAN 0.62 K/mm3 (0.00-0.00); METAMYELOCYTE PERCENT MAN 3 % (0-0); MONOCYTES ABSOLUTE MAN 0.83 K/mm3 (0.16-1.47); MONOCYTES PERCENT MAN 4 % (4-13); MYELOCYTE PERCENT MAN 1 % (0-0); NEUTROPHILS ABSOLUTE MAN 16.52 K/mm3 (1.96-9.15); SEG NEUTROPHILS PERCENT MAN 77 % (41-73); TOTAL CELLS COUNTED 100
[2019-09-15 03:30] LABS: Anion Gap 6 mmol/L (6-16); Blood Urea Nitrogen 13 mg/dL (8-24); Bun/Creatinine Ratio 18.8 (12.0-20.0); CO2, Blood 23 mmol/L (21-32); Calcium, Blood 8.1 mg/dL (8.5-10.1); Chloride, Blood 109 mmol/L (98-108); Creatinine, Blood 0.69 mg/dL (0.60-1.20); Glomerular Filtration Rate >60 (60-); Glucose, Blood 96 mg/dL (70-99); Potassium, Blood 3.9 mmol/L (3.5-5.5); Sodium, Blood 138 mmol/L (136-145); Vancomycin, Trough 17.1 ug/mL (5.0-10.0)
[2019-09-15 03:33] LABS: International Normalized Ratio 2.71; Prothrombin Time Results 27.4 Sec (9.7-11.5)
[2019-09-15 11:08] LABS: Antinuclear Antibody Screen Negative (Negative)
[2019-09-16 05:13] LABS: Hematocrit 28.2 % (37.0-53.0); Hemoglobin 8.9 g/dL (13.5-17.5); Mean Corpuscular HGB 27.6 pg (26.0-34.0); Mean Corpuscular HGB Conc 31.6 g/dL (31.5-36.5); Mean Corpuscular Volume 88 fL (80-100); Mean Platelet Volume 8.9 fL (9.1-12.4); Platelet Count 582 K/mm3 (150-400); RDW Coefficient Variation 15.1 % (11.7-14.2); RDW Standard Deviation 48.7 fL (35.1-46.3); Red Blood Cell Count 3.22 M/mm3 (4.30-5.90); White Blood Cell Count 18.38 K/mm3 (4.00-11.30)
[2019-09-16 05:39] LABS: BASOPHILS ABSOLUTE MAN 0.18 K/mm3 (0.00-0.23); BASOPHILS PERCENT MAN 1 % (0-2); EOSINOPHILS ABSOLUTE MAN 2.94 K/mm3 (0.00-0.68); EOSINOPHILS PERCENT MAN 16 % (0-6); LYMPHOCYTES ABSOLUTE MAN 1.47 K/mm3 (0.84-5.20); LYMPHOCYTES PERCENT MAN 8 % (21-46); METAMYELOCYTE ABSOLUTE MAN 0.36 K/mm3 (0.00-0.00); METAMYELOCYTE PERCENT MAN 2 % (0-0); MONOCYTES ABSOLUTE MAN 0.55 K/mm3 (0.16-1.47); MONOCYTES PERCENT MAN 3 % (4-13); MYELOCYTE ABSOLUTE MAN 0.18 K/mm3 (0.00-0.00); MYELOCYTE PERCENT MAN 1 % (0-0); NEUTROPHILS ABSOLUTE MAN 12.68 K/mm3 (1.96-9.15); SEG NEUTROPHILS PERCENT MAN 69 % (41-73); TOTAL CELLS COUNTED 100
[2019-09-16 21:09] LABS: HBSAG SCREEN Negative (Negative); HEP B CORE AB, TOT Negative (Negative); HEP C VIRUS AB 0.1 (0.0-0.9)
[2019-09-17 00:09] LABS: HIV SCREEN 4TH GENERATION WRFX Non Reactive (Non Reactive)
[2019-09-17 05:11] LABS: BASOPHILS ABSOLUTE AUTO 0.17 K/mm3 (0.00-0.23); BASOPHILS PERCENT AUTO 1 % (0-2); EOSINOPHILS ABSOLUTE AUTO 1.33 K/mm3 (0.00-0.68); EOSINOPHILS PERCENT AUTO 7 % (0-6); Hematocrit 30.3 % (37.0-53.0); Hemoglobin 9.6 g/dL (13.5-17.5); IMMATURE GRAN ABSOLUTE AUTO 1.07 K/mm3 (0.00-0.10); IMMATURE GRAN PERCENT AUTO 6 % (0-1); LYMPHOCYTES ABSOLUTE AUTO 2.25 K/mm3 (0.84-5.20); LYMPHOCYTES PERCENT AUTO 12 % (21-46); MONOCYTES ABSOLUTE AUTO 1.11 K/mm3 (0.16-1.47); MONOCYTES PERCENT AUTO 6 % (4-13); Mean Corpuscular HGB Conc 31.7 g/dL (31.5-36.5); Mean Corpuscular Volume 88 fL (80-100); Mean Platelet Volume 9.3 fL (9.1-12.4); NEUTROPHILS ABSOLUTE AUTO 12.43 K/mm3 (1.96-9.15); NEUTROPHILS PERCENT AUTO 68 % (41-73); Platelet Count 636 K/mm3 (150-400); RDW Coefficient Variation 15.3 % (11.7-14.2); RDW Standard Deviation 49.2 fL (35.1-46.3); Red Blood Cell Count 3.43 M/mm3 (4.30-5.90); White Blood Cell Count 18.36 K/mm3 (4.00-11.30)
[2019-09-17 05:31] LABS: BAND PERCENT MAN 1 % (0-8); BASOPHILS PERCENT MAN 0 % (0-2); EOSINOPHILS ABSOLUTE MAN 0.55 K/mm3 (0.00-0.68); EOSINOPHILS PERCENT MAN 3 % (0-6); LYMPHOCYTES ABSOLUTE MAN 1.65 K/mm3 (0.84-5.20); LYMPHOCYTES PERCENT MAN 9 % (21-46); METAMYELOCYTE ABSOLUTE MAN 0.18 K/mm3 (0.00-0.00); METAMYELOCYTE PERCENT MAN 1 % (0-0); MONOCYTES ABSOLUTE MAN 0.73 K/mm3 (0.16-1.47); MONOCYTES PERCENT MAN 4 % (4-13); MYELOCYTE ABSOLUTE MAN 0.18 K/mm3 (0.00-0.00); MYELOCYTE PERCENT MAN 1 % (0-0); NEUTROPHILS ABSOLUTE MAN 15.05 K/mm3 (1.96-9.15); SEG NEUTROPHILS PERCENT MAN 81 % (41-73); TOTAL CELLS COUNTED 100
[2019-09-17 08:51] LABS: International Normalized Ratio 1.75; Prothrombin Time Results 18.1 Sec (9.7-11.5)
[2019-09-18 04:48] LABS: International Normalized Ratio 1.82; Prothrombin Time Results 18.8 Sec (9.7-11.5)
[2019-09-18] MEDS ORDERED: CEPH500 PO (16:45)
[2019-09-18] MEDS ORDERED: LOVENOX100 MG/1 M SC (16:48)
== END 2019-09-18 18:13 | disposition home or self-care (01) | DRG 872 ==
LOC: ER 09:29 → MEDS 14:26
PROVIDERS: Emergency Medicine; Hospitalist; Internal Medicine Infectious Disease; Nurse Practitioner Acute Care; ADMIT Internal Medicine
DX: A41.9 Sepsis, unspecified organism (principal); L03.115 Cellulitis of right lower limb; D68.51 Activated protein C resistance; F43.12 Post-traumatic stress disorder, chronic; Z86.718 Personal history of other venous thrombosis and embolism; Z79.01 Long term (current) use of anticoagulants; Z86.14 Personal history of Methicillin resistant Staphylococcus aureus infection; Z87.820 Personal history of traumatic brain injury; G89.4 Chronic pain syndrome; M54.9 Dorsalgia, unspecified; J44.9 Chronic obstructive pulmonary disease, unspecified; F15.10 Other stimulant abuse, uncomplicated; F17.220 Nicotine dependence, chewing tobacco, uncomplicated; I10 Essential (primary) hypertension; G40.909 Epilepsy, unspecified, not intractable, without status epilepticus
CPT/HCPCS: 36415; 71045; 80048; 80053; 80202; 81001; 83605; 83735; 84145; 84484; 85025; 85610; 85651; 85730; 86038; 86140; 86141; 86317; 86704; 86708; 86803; 87040; 87081; 87340; 87389; 93005; 93010; 93306; 93308; 94640; 94760; 96361; 96365-59; 99285-25; A9270; A9270-GY; G0103; J1650; J3370; J7050; J7120

== ENCOUNTER 2019-09-25 00:13 | Day surgery (SDC) | payer OTHER ==
[~2019-09-25 00:13] MED LIST changes: +CEPH500 PO; +LOVENOX100 MG/1 M SC
== END 2019-09-25 22:54 | disposition home or self-care (01) ==
LOC: WOUND 00:13
DX: L97.812 Non-pressure chronic ulcer of other part of right lower leg with fat layer exposed (principal); I10 Essential (primary) hypertension; F43.12 Post-traumatic stress disorder, chronic; Z86.718 Personal history of other venous thrombosis and embolism; Z79.01 Long term (current) use of anticoagulants
CPT/HCPCS: G0463

== ENCOUNTER 2019-09-30 00:08 | Day surgery (SDC) | payer OTHER | END 2019-09-30 22:56 | disposition home or self-care (01) | DX: L97.812 Non-pressure chronic ulcer of other part of right lower leg with fat layer exposed (principal) ==

== ENCOUNTER 2019-10-15 00:19 | Day surgery (SDC) | payer OTHER | END 2019-10-15 22:56 | disposition home or self-care (01) | LOC: WOUND 00:19 | DX: L97.812 Non-pressure chronic ulcer of other part of right lower leg with fat layer exposed (principal) ==

== ENCOUNTER 2019-10-29 00:23 | Day surgery (SDC) | payer OTHER | END 2019-10-29 22:44 | disposition home or self-care (01) | LOC: WOUND 00:23 | DX: L97.812 Non-pressure chronic ulcer of other part of right lower leg with fat layer exposed (principal); Z79.899 Other long term (current) drug therapy; Z79.01 Long term (current) use of anticoagulants; Z86.718 Personal history of other venous thrombosis and embolism; I10 Essential (primary) hypertension ==

== ENCOUNTER 2019-11-05 00:16 | Day surgery (SDC) | payer OTHER | END 2019-11-05 22:43 | disposition home or self-care (01) | LOC: WOUND 00:16 | DX: L97.812 Non-pressure chronic ulcer of other part of right lower leg with fat layer exposed (principal); F17.220 Nicotine dependence, chewing tobacco, uncomplicated; I10 Essential (primary) hypertension; Z79.899 Other long term (current) drug therapy; Z79.01 Long term (current) use of anticoagulants | CPT/HCPCS: 87070; 87075; 87077; 87147; 87186; 87205 ==

== ENCOUNTER 2019-12-03 00:14 | Day surgery (SDC) | payer OTHER | END 2019-12-03 23:01 | disposition home or self-care (01) | LOC: WOUND 00:14 | DX: L97.815 Non-pressure chronic ulcer of other part of right lower leg with muscle involvement without evidence of necrosis (principal); I10 Essential (primary) hypertension; J45.909 Unspecified asthma, uncomplicated ==